=== PATIENT | female | born 1985 | race Caucasian/White ===

== ENCOUNTER 2021-01-18 08:56 | Emergency (ER) | payer OTHER ==
[~2021-01-18] VITALS: Ht 165.1 cm; Wt 129.7 kg
[2021-01-18 11:09] LABS: HEMATOCRIT 42.7 % (37.0-47.0); HEMOGLOBIN 14.2 gm/dL (12.0-15.0); MCH 29.8 pg (26.0-34.0); MCHC 33.3 g/dL (28.0-37.0); MCV 89.5 fL (80.0-100.0); MPV 8.5 fl. (7.2-11.1); NUCLEATED RBCS 0 /100WBC; PLATELET COUNT* 249 thou/uL (150-400); RBC 4.77 mil/uL (4.20-5.00); RDW-CV 13.5 % (10.5-14.5)
[2021-01-18 11:34] LABS: CALCIUM 8.4 mg/dL (8.5-10.1); CREATININE 0.9 mg/dL (0.6-1.3); POTASSIUM 3.5 mmol/L (3.5-5.1)
[2021-01-18 11:39] LABS: ALBUMIN 3.4 g/dL (3.4-5.0); TOTAL BILIRUBIN 0.9 mg/dL (<0.1-1.0); TOTAL PROTEIN 8.1 g/dL (6.4-8.2)
[2021-01-18 11:40] LABS: ABSOLUTE LYMPHOCYTES 0.6 thou/uL (0.8-5.3); ABSOLUTE MONOCYTES 0.4 thou/uL (0.0-1.2)
[2021-01-18 11:41] LABS: PLATELET ESTIMATE ADEQUATE
[2021-01-18] MEDS ORDERED: BACTRIM DS TAB1 EACH PO (12:43)
[2021-01-18] MEDS ORDERED: CEPHALEXIN500 MG PO (12:43)
[2021-01-18] MEDS ORDERED: HYDROCODON-ACE1 EAC7 PO (12:43)
[2021-01-18 16:06] VITALS: BP 157/87
== END 2021-01-18 16:07 | disposition home or self-care (01) ==
LOC: M.ERS 08:56
PROVIDERS: Nurse Practitioner Family
DX: L03.115 Cellulitis of right lower limb (principal); Z20.822 Contact with and (suspected) exposure to COVID-19; I10 Essential (primary) hypertension; E66.9 Obesity, unspecified; Z88.1 Allergy status to other antibiotic agents